=== PATIENT | female | born 1945 | race Caucasian/White ===

== ENCOUNTER 2017-06-03 23:42 | Emergency (ER) | payer OTHER, MEDICAID ==
[~2017-06-03] VITALS: Ht 162.6 cm; Wt 62.6 kg
--- NOTE | 2017-06-03 23:59 | NUR ---
PT BIBSELF, W/C TO ER BED 7 C/O RIGHT FOOT WOUND X3 MONTHS. PT AOX3 RR EVEN AND UNLABORED. NO SOB NOTED. NAD NOTED. NO NVD AT THIS TIME. PT NOT DIAPHORETIC. PT GOWNED AND PLACED ON MONITOR WAITING FOR MD SAINZ.
--- NOTE | 2017-06-04 00:03 | NUR ---
DR. VEGA AT BEDSIDE FOR EVAL.
--- NOTE | 2017-06-04 00:09 | NUR ---
XRAY AT BEDSIDE
--- NOTE | 2017-06-04 01:23 | NUR ---
Patient discharged to home in stable condition. Written and verbal after care instructions given. Patient verbalizes understanding of instruction. pt ambulatory with a steady gait with personal crutch
[2017-06-04 01:25] VITALS: BP 138/87
== END 2017-06-04 01:25 | disposition home or self-care (01) ==
LOC: ER 23:43
DX: S91.331A Puncture wound without foreign body, right foot, initial encounter (principal); Z90.49 Acquired absence of other specified parts of digestive tract; Z90.710 Acquired absence of both cervix and uterus; Z88.2 Allergy status to sulfonamides; X11.8XXA Contact with other hot tap-water, initial encounter; Y93.89 Activity, other specified; Y92.89 Other specified places as the place of occurrence of the external cause; Y99.9 Unspecified external cause status
CPT/HCPCS: 73630; 99284; A4606; Z7610